=== PATIENT | female | born 1985 | race Caucasian/White ===

== ENCOUNTER 2022-04-23 12:18 | Inpatient (IN) | payer MEDICARE, MEDICAID ==
[~2022-04-23] VITALS: Ht 172.7 cm; Wt 54.4 kg
[2022-04-23] MEDS ORDERED: ZOLPIDEM TARTRATE 10 MG TABLET PO PRN (14:00)
[2022-04-23 15:28] VITALS: BP 127/82
[2022-04-23 16:12] VITALS: BP 127/82
[2022-04-23] MEDS: BACITRACIN 28 GM OINTMENT TP SCH (18:00)
[2022-04-23] MEDS ORDERED: ACETAMINOPHEN 325 MG TABLET PO PRN (18:00)
[2022-04-24] MEDS ORDERED: DOCUSATE SODIUM 100 MG CAPSULE PO PRN (06:30)
[2022-04-24] MEDS ORDERED: ONDANSETRON HCL 4 MG TABLET PO PRN (06:30)
[2022-04-24] MEDS ORDERED: NICOTINE 14 MG/24 HOUR PATCH TD PRN (06:30)
[2022-04-24] MEDS ORDERED: GuaiFENesin/D-METHORPHAN [SUGAR-FREE] 200-20MG/10 ML SYRUP UDCUP PO PRN (06:30)
[2022-04-24] MEDS ORDERED: CloNIDine HCL 0.1 MG TABLET PO PRN (06:30)
[2022-04-24] MEDS ORDERED: PETROLATUM,WHITE 28 GM JELLY TP PRN (06:30)
[2022-04-24] MEDS ORDERED: ACETAMINOPHEN 325 MG TABLET PO PRN (06:30)
[2022-04-24] MEDS ORDERED: MAGNESIUM HYDROXIDE SUSPENSION 30 ML UDCUP PO PRN (06:30)
[2022-04-24] MEDS ORDERED: MAG HYDROX/AL HYDROX/SIMETH ES 30 ML SUSPENSION UDCUP PO PRN (06:30)
[2022-04-24] MEDS ORDERED: LOPERAMIDE HCL 2 MG CAPSULE PO PRN (06:30)
[2022-04-24] MEDS ORDERED: ALBUTEROL SULFATE HFA 90 MCG/PUFF 8 GM INHALER IH PRN (06:30)
[2022-04-24] MEDS: IBUPROFEN 400 MG TABLET PO PRN (08:59)
[2022-04-24] MEDS: NICOTINE 14 MG/24 HOUR PATCH TD SCH (08:59)
[2022-04-24] MEDS: BACITRACIN 28 GM OINTMENT TP SCH ×3 (09:00→16:52)
[2022-04-24] MEDS ORDERED: LITH300C3 PO (14:23)
[2022-04-24] MEDS ORDERED: ARIP10TA38 PO (14:23)
[2022-04-24] MEDS: LORazepam 2 MG TABLET PO PRN (14:26)
[2022-04-24 20:24] VITALS: BP 110/71
[2022-04-24] MEDS: LITHIUM CARBONATE 300 MG CAPSULE PO SCH (20:42)
[2022-04-24] MEDS: ARIPiprazole 10 MG TABLET PO SCH (20:42)
[2022-04-25] MEDS: NICOTINE 14 MG/24 HOUR PATCH TD SCH (08:41)
[2022-04-25] MEDS: BACITRACIN 28 GM OINTMENT TP SCH ×2 (08:41→17:21)
[2022-04-25 08:50] VITALS: BP 118/79
[2022-04-25 08:58] VITALS: BP 118/79
[2022-04-25] MEDS: LORazepam 2 MG TABLET PO PRN (11:52)
[2022-04-25] MEDS: NITROFURANTOIN MONOHYD/M-CRYST 100 MG CAPSULE [MACROBID] PO SCH (17:21)
[2022-04-25] MEDS: ARIPiprazole 10 MG TABLET PO SCH (20:16)
[2022-04-25] MEDS: LITHIUM CARBONATE 300 MG CAPSULE PO SCH (20:17)
[2022-04-25 20:49] VITALS: BP 116/70
[2022-04-26] MEDS: BACITRACIN 28 GM OINTMENT TP SCH ×2 (08:24→16:09)
[2022-04-26] MEDS: NITROFURANTOIN MONOHYD/M-CRYST 100 MG CAPSULE [MACROBID] PO SCH ×2 (08:24→16:09)
[2022-04-26] MEDS: NICOTINE 14 MG/24 HOUR PATCH TD SCH (08:24)
[2022-04-26 08:31] VITALS: BP 116/75
[2022-04-26] MEDS: IBUPROFEN 400 MG TABLET PO PRN (10:11)
[2022-04-26] MEDS: LORazepam 2 MG TABLET PO PRN ×2 (11:27→20:54)
[2022-04-26] MEDS: ARIPiprazole 10 MG TABLET PO SCH (20:54)
[2022-04-26] MEDS: LITHIUM CARBONATE 300 MG CAPSULE PO SCH (20:54)
[2022-04-26 21:14] VITALS: BP 109/58
[2022-04-27 09:31] VITALS: BP 100/69
[2022-04-27] MEDS: NITROFURANTOIN MONOHYD/M-CRYST 100 MG CAPSULE [MACROBID] PO SCH ×2 (10:08→16:41)
[2022-04-27] MEDS: NICOTINE 14 MG/24 HOUR PATCH TD SCH (10:08)
[2022-04-27] MEDS: BACITRACIN 28 GM OINTMENT TP SCH ×2 (10:09→16:41)
[2022-04-27 18:41] VITALS: BP 112/68
[2022-04-27] MEDS: IBUPROFEN 400 MG TABLET PO PRN (18:41)
[2022-04-27] MEDS: LORazepam 2 MG TABLET PO PRN (19:47)
[2022-04-27 20:00] VITALS: BP 110/61
[2022-04-27] MEDS: LITHIUM CARBONATE 300 MG CAPSULE PO SCH (20:33)
[2022-04-27] MEDS: ARIPiprazole 10 MG TABLET PO SCH (20:33)
[2022-04-28 08:55] VITALS: BP 119/70
[2022-04-28] MEDS: NITROFURANTOIN MONOHYD/M-CRYST 100 MG CAPSULE [MACROBID] PO SCH ×2 (09:04→16:28)
[2022-04-28] MEDS: NICOTINE 14 MG/24 HOUR PATCH TD SCH (09:04)
[2022-04-28] MEDS: BACITRACIN 28 GM OINTMENT TP SCH ×2 (09:05→16:28)
[2022-04-28 11:16] LABS: GLUCOMETER DEV NAME(LOC) POC.BV
[2022-04-28] MEDS: ARIPiprazole 10 MG TABLET PO SCH (20:39)
[2022-04-28] MEDS: LITHIUM CARBONATE 300 MG CAPSULE PO SCH (20:39)
[2022-04-28 21:24] VITALS: BP 100/62
[2022-04-29 08:30] VITALS: BP 97/57
[2022-04-29] MEDS: NITROFURANTOIN MONOHYD/M-CRYST 100 MG CAPSULE [MACROBID] PO SCH ×2 (10:06→16:37)
[2022-04-29] MEDS: BACITRACIN 28 GM OINTMENT TP SCH ×2 (10:16→16:38)
[2022-04-29] MEDS: NICOTINE 14 MG/24 HOUR PATCH TD SCH (10:17)
[2022-04-29] MEDS: ARIPiprazole 10 MG TABLET PO SCH (20:34)
[2022-04-29] MEDS: LITHIUM CARBONATE 300 MG CAPSULE PO SCH (20:34)
[2022-04-29 20:49] VITALS: BP 108/61
[2022-04-30 08:44] VITALS: BP 104/68
[2022-04-30] MEDS: BACITRACIN 28 GM OINTMENT TP SCH ×2 (09:15→17:03)
[2022-04-30] MEDS: NITROFURANTOIN MONOHYD/M-CRYST 100 MG CAPSULE [MACROBID] PO SCH ×2 (09:16→17:02)
[2022-04-30] MEDS: NICOTINE 14 MG/24 HOUR PATCH TD SCH (09:17)
[2022-04-30 20:08] VITALS: BP 113/61
[2022-04-30] MEDS: LITHIUM CARBONATE 300 MG CAPSULE PO SCH (20:12)
[2022-04-30] MEDS: ARIPiprazole 10 MG TABLET PO SCH (20:12)
[2022-05-01 08:43] VITALS: BP 105/61
[2022-05-01] MEDS: NITROFURANTOIN MONOHYD/M-CRYST 100 MG CAPSULE [MACROBID] PO SCH ×2 (08:48→17:06)
[2022-05-01] MEDS: BACITRACIN 28 GM OINTMENT TP SCH ×2 (08:49→17:06)
[2022-05-01] MEDS: NICOTINE 14 MG/24 HOUR PATCH TD SCH (08:49)
[2022-05-01] MEDS: ARIPiprazole 10 MG TABLET PO SCH (20:09)
[2022-05-01] MEDS: LITHIUM CARBONATE 300 MG CAPSULE PO SCH (20:09)
[2022-05-01 20:16] VITALS: BP 107/64
[2022-05-02 08:06] VITALS: BP 110/68
[2022-05-02] MEDS: NITROFURANTOIN MONOHYD/M-CRYST 100 MG CAPSULE [MACROBID] PO SCH ×2 (09:14→16:39)
[2022-05-02] MEDS: NICOTINE 14 MG/24 HOUR PATCH TD SCH (09:15)
[2022-05-02] MEDS: BACITRACIN 28 GM OINTMENT TP SCH ×2 (09:16→16:39)
[2022-05-02] MEDS: ARIPiprazole 10 MG TABLET PO SCH (20:32)
[2022-05-02] MEDS: LITHIUM CARBONATE 300 MG CAPSULE PO SCH (20:33)
[2022-05-02 21:17] VITALS: BP 103/64
[2022-05-03 08:50] VITALS: BP 100/60
[2022-05-03] MEDS: NICOTINE 14 MG/24 HOUR PATCH TD SCH (09:28)
[2022-05-03] MEDS: BACITRACIN 28 GM OINTMENT TP SCH ×2 (09:29→16:49)
[2022-05-03] MEDS: ARIPiprazole 10 MG TABLET PO SCH (20:00)
[2022-05-03] MEDS: LITHIUM CARBONATE 300 MG CAPSULE PO SCH (20:01)
[2022-05-03 21:18] VITALS: BP 97/61
[2022-05-04] MEDS: LACTOBACILLUS ACIDOPHILUS/BULGARICUS TABLET PO SCH (08:26)
[2022-05-04] MEDS: NICOTINE 14 MG/24 HOUR PATCH TD SCH (08:26)
[2022-05-04 09:00] VITALS: BP 103/54
[2022-05-04] MEDS: BACITRACIN 28 GM OINTMENT TP SCH ×2 (09:00→16:32)
[2022-05-04] MEDS: LITHIUM CARBONATE 300 MG CAPSULE PO SCH (20:27)
[2022-05-04] MEDS: ARIPiprazole 10 MG TABLET PO SCH (20:27)
[2022-05-04 20:54] VITALS: BP 104/62
[2022-05-05] MEDS: NICOTINE 14 MG/24 HOUR PATCH TD SCH (08:35)
[2022-05-05] MEDS: LACTOBACILLUS ACIDOPHILUS/BULGARICUS TABLET PO SCH (08:35)
[2022-05-05] MEDS: BACITRACIN 28 GM OINTMENT TP SCH ×2 (08:35→16:21)
[2022-05-05 09:03] VITALS: BP 128/74
[2022-05-05 20:14] VITALS: BP 104/61
[2022-05-05] MEDS: LITHIUM CARBONATE 300 MG CAPSULE PO SCH (20:14)
[2022-05-05] MEDS: ARIPiprazole 10 MG TABLET PO SCH (20:14)
[2022-05-05 21:16] LABS: GLUCOMETER DEV NAME(LOC) POC.BV
[2022-05-06 08:30] VITALS: BP 122/70
[2022-05-06] MEDS: LACTOBACILLUS ACIDOPHILUS/BULGARICUS TABLET PO SCH (09:41)
[2022-05-06] MEDS: NICOTINE 14 MG/24 HOUR PATCH TD SCH (09:42)
[2022-05-06] MEDS: BACITRACIN 28 GM OINTMENT TP SCH ×2 (09:42→17:14)
[2022-05-06] MEDS: LITHIUM CARBONATE 300 MG CAPSULE PO SCH (20:07)
[2022-05-06] MEDS: ARIPiprazole 10 MG TABLET PO SCH (20:07)
[2022-05-06 21:05] VITALS: BP 100/60
[2022-05-07] MEDS: BACITRACIN 28 GM OINTMENT TP SCH ×2 (08:10→16:55)
[2022-05-07] MEDS: LACTOBACILLUS ACIDOPHILUS/BULGARICUS TABLET PO SCH (08:11)
[2022-05-07] MEDS: NICOTINE 14 MG/24 HOUR PATCH TD SCH (08:11)
[2022-05-07 08:22] VITALS: BP 104/56
[2022-05-07 20:08] VITALS: BP 103/65
[2022-05-07] MEDS: LITHIUM CARBONATE 300 MG CAPSULE PO SCH (20:31)
[2022-05-07] MEDS: ARIPiprazole 10 MG TABLET PO SCH (20:31)
[2022-05-08] MEDS: LACTOBACILLUS ACIDOPHILUS/BULGARICUS TABLET PO SCH (08:15)
[2022-05-08] MEDS: BACITRACIN 28 GM OINTMENT TP SCH ×2 (08:15→16:31)
[2022-05-08] MEDS: NICOTINE 14 MG/24 HOUR PATCH TD SCH (08:16)
[2022-05-08 08:56] VITALS: BP 116/68
[2022-05-08] MEDS: MULTIVITAMINS WITH MINERALS, THERAPEUTIC TABLET PO SCH (16:31)
[2022-05-08 20:21] VITALS: BP 101/61
[2022-05-08] MEDS: ARIPiprazole 10 MG TABLET PO SCH (20:32)
[2022-05-08] MEDS: LITHIUM CARBONATE 300 MG CAPSULE PO SCH (20:32)
[2022-05-09 08:10] VITALS: BP 100/60
[2022-05-09] MEDS: LACTOBACILLUS ACIDOPHILUS/BULGARICUS TABLET PO SCH (08:29)
[2022-05-09] MEDS: MULTIVITAMINS WITH MINERALS, THERAPEUTIC TABLET PO SCH (08:29)
[2022-05-09] MEDS: NICOTINE 14 MG/24 HOUR PATCH TD SCH (08:30)
[2022-05-09] MEDS: BACITRACIN 28 GM OINTMENT TP SCH ×2 (08:43→17:11)
[2022-05-09 09:34] VITALS: BP 94/56
[2022-05-09] MEDS: LITHIUM CARBONATE 300 MG CAPSULE PO SCH (20:11)
[2022-05-09] MEDS: ARIPiprazole 10 MG TABLET PO SCH (20:11)
[2022-05-10 04:27] VITALS: BP 100/60
[2022-05-10] MEDS: NICOTINE 14 MG/24 HOUR PATCH TD SCH (08:11)
[2022-05-10] MEDS: LACTOBACILLUS ACIDOPHILUS/BULGARICUS TABLET PO SCH (08:12)
[2022-05-10] MEDS: BACITRACIN 28 GM OINTMENT TP SCH ×2 (08:12→16:12)
[2022-05-10] MEDS: MULTIVITAMINS WITH MINERALS, THERAPEUTIC TABLET PO SCH (08:12)
[2022-05-10 09:55] VITALS: BP 102/78
[2022-05-10] MEDS: LITHIUM CARBONATE 300 MG CAPSULE PO SCH (20:02)
[2022-05-10] MEDS: ARIPiprazole 10 MG TABLET PO SCH (20:02)
[2022-05-11 04:36] VITALS: BP 97/60
[2022-05-11 08:28] VITALS: BP 100/59
[2022-05-11] MEDS: NICOTINE 14 MG/24 HOUR PATCH TD SCH (10:24)
[2022-05-11] MEDS: MULTIVITAMINS WITH MINERALS, THERAPEUTIC TABLET PO SCH (10:24)
[2022-05-11] MEDS: LACTOBACILLUS ACIDOPHILUS/BULGARICUS TABLET PO SCH (10:25)
[2022-05-11] MEDS: BACITRACIN 28 GM OINTMENT TP SCH ×2 (10:25→16:45)
[2022-05-11 20:00] VITALS: BP 91/55
[2022-05-11] MEDS: ARIPiprazole 10 MG TABLET PO SCH (20:50)
[2022-05-11] MEDS: LITHIUM CARBONATE 300 MG CAPSULE PO SCH (20:50)
[2022-05-12 08:15] VITALS: BP 114/74
[2022-05-12] MEDS: BACITRACIN 28 GM OINTMENT TP SCH ×2 (09:33→16:34)
[2022-05-12] MEDS: NICOTINE 14 MG/24 HOUR PATCH TD SCH (09:33)
[2022-05-12] MEDS: MULTIVITAMINS WITH MINERALS, THERAPEUTIC TABLET PO SCH (09:33)
[2022-05-12 11:31] LABS: GLUCOMETER DEV NAME(LOC) POC.BV
[2022-05-12] MEDS: LACTOBACILLUS ACIDOPHILUS/BULGARICUS TABLET PO SCH (13:16)
[2022-05-12 20:19] VITALS: BP 106/63
[2022-05-12] MEDS: LITHIUM CARBONATE 300 MG CAPSULE PO SCH (20:35)
[2022-05-12] MEDS: ARIPiprazole 10 MG TABLET PO SCH (20:35)
[2022-05-13] MEDS: LACTOBACILLUS ACIDOPHILUS/BULGARICUS TABLET PO SCH (09:49)
[2022-05-13] MEDS: MULTIVITAMINS WITH MINERALS, THERAPEUTIC TABLET PO SCH (09:49)
[2022-05-13] MEDS: BACITRACIN 28 GM OINTMENT TP SCH ×2 (09:50→16:52)
[2022-05-13] MEDS: NICOTINE 14 MG/24 HOUR PATCH TD SCH (09:50)
[2022-05-13 20:15] VITALS: BP 109/58
[2022-05-13] MEDS: ARIPiprazole 10 MG TABLET PO SCH (20:29)
[2022-05-13] MEDS: LITHIUM CARBONATE 300 MG CAPSULE PO SCH (20:29)
[2022-05-14 04:33] VITALS: BP 115/86
[2022-05-14 08:22] VITALS: BP 118/81
[2022-05-14] MEDS: LACTOBACILLUS ACIDOPHILUS/BULGARICUS TABLET PO SCH (08:48)
[2022-05-14] MEDS: MULTIVITAMINS WITH MINERALS, THERAPEUTIC TABLET PO SCH (08:48)
[2022-05-14] MEDS: NICOTINE 14 MG/24 HOUR PATCH TD SCH (08:49)
[2022-05-14] MEDS: BACITRACIN 28 GM OINTMENT TP SCH ×2 (08:54→17:13)
[2022-05-14 20:11] VITALS: BP 107/58
[2022-05-14] MEDS: ARIPiprazole 10 MG TABLET PO SCH (20:20)
[2022-05-14] MEDS: LITHIUM CARBONATE 300 MG CAPSULE PO SCH (20:20)
[2022-05-15] MEDS: LACTOBACILLUS ACIDOPHILUS/BULGARICUS TABLET PO SCH (08:28)
[2022-05-15] MEDS: NICOTINE 14 MG/24 HOUR PATCH TD SCH (08:28)
[2022-05-15] MEDS: MULTIVITAMINS WITH MINERALS, THERAPEUTIC TABLET PO SCH (08:28)
[2022-05-15] MEDS: BACITRACIN 28 GM OINTMENT TP SCH ×2 (08:28→17:10)
[2022-05-15 08:38] VITALS: BP 108/60
[2022-05-15] MEDS: LITHIUM CARBONATE 300 MG CAPSULE PO SCH (20:09)
[2022-05-15] MEDS: ARIPiprazole 10 MG TABLET PO SCH (20:09)
[2022-05-15 23:30] VITALS: BP 110/68
[2022-05-16 08:23] VITALS: BP 99/60
[2022-05-16] MEDS: BACITRACIN 28 GM OINTMENT TP SCH ×2 (09:00→17:00)
[2022-05-16] MEDS: LACTOBACILLUS ACIDOPHILUS/BULGARICUS TABLET PO SCH (09:27)
[2022-05-16] MEDS: MULTIVITAMINS WITH MINERALS, THERAPEUTIC TABLET PO SCH (09:27)
[2022-05-16] MEDS: NICOTINE 14 MG/24 HOUR PATCH TD SCH (09:27)
[2022-05-16] MEDS: ARIPiprazole 10 MG TABLET PO SCH (20:33)
[2022-05-16] MEDS: LITHIUM CARBONATE 300 MG CAPSULE PO SCH (20:33)
[2022-05-16 21:23] VITALS: BP 104/61
[2022-05-17] MEDS: MULTIVITAMINS WITH MINERALS, THERAPEUTIC TABLET PO SCH (08:08)
[2022-05-17] MEDS: BACITRACIN 28 GM OINTMENT TP SCH ×2 (08:08→16:29)
[2022-05-17] MEDS: LACTOBACILLUS ACIDOPHILUS/BULGARICUS TABLET PO SCH (08:08)
[2022-05-17] MEDS: NICOTINE 14 MG/24 HOUR PATCH TD SCH (08:09)
[2022-05-17 08:56] VITALS: BP 100/65
[2022-05-17] MEDS: ARIPiprazole 10 MG TABLET PO SCH (20:32)
[2022-05-17] MEDS: LITHIUM CARBONATE 300 MG CAPSULE PO SCH (20:33)
[2022-05-17 21:06] VITALS: BP 99/61
[2022-05-18 08:00] VITALS: BP 100/60
[2022-05-18] MEDS: MULTIVITAMINS WITH MINERALS, THERAPEUTIC TABLET PO SCH (08:05)
[2022-05-18] MEDS: NICOTINE 14 MG/24 HOUR PATCH TD SCH (08:05)
[2022-05-18] MEDS: BACITRACIN 28 GM OINTMENT TP SCH ×2 (08:06→16:34)
[2022-05-18] MEDS: LACTOBACILLUS ACIDOPHILUS/BULGARICUS TABLET PO SCH (08:06)
[2022-05-18] MEDS: ARIPiprazole 10 MG TABLET PO SCH (20:29)
[2022-05-18] MEDS: LITHIUM CARBONATE 300 MG CAPSULE PO SCH (20:29)
[2022-05-18 21:56] VITALS: BP 112/68
[2022-05-19 09:01] LABS: GLUCOMETER DEV NAME(LOC) POC.BV
[2022-05-19] MEDS: LACTOBACILLUS ACIDOPHILUS/BULGARICUS TABLET PO SCH (10:13)
[2022-05-19] MEDS: MULTIVITAMINS WITH MINERALS, THERAPEUTIC TABLET PO SCH (10:13)
[2022-05-19] MEDS: BACITRACIN 28 GM OINTMENT TP SCH ×2 (10:13→16:28)
[2022-05-19] MEDS: NICOTINE 14 MG/24 HOUR PATCH TD SCH (10:13)
[2022-05-19 10:31] VITALS: BP 100/60
[2022-05-19 20:17] VITALS: BP 102/61
[2022-05-19] MEDS: LITHIUM CARBONATE 300 MG CAPSULE PO SCH (20:36)
[2022-05-19] MEDS: ARIPiprazole 10 MG TABLET PO SCH (20:36)
[2022-05-20 08:28] VITALS: BP 100/62
[2022-05-20] MEDS: LACTOBACILLUS ACIDOPHILUS/BULGARICUS TABLET PO SCH (09:15)
[2022-05-20] MEDS: BACITRACIN 28 GM OINTMENT TP SCH ×2 (09:15→16:12)
[2022-05-20] MEDS: MULTIVITAMINS WITH MINERALS, THERAPEUTIC TABLET PO SCH (09:15)
[2022-05-20] MEDS: NICOTINE 14 MG/24 HOUR PATCH TD SCH (09:15)
[2022-05-20 20:09] VITALS: BP 101/60
[2022-05-20] MEDS: ARIPiprazole 10 MG TABLET PO SCH (20:43)
[2022-05-20] MEDS: LITHIUM CARBONATE 300 MG CAPSULE PO SCH (20:43)
[2022-05-21] MEDS: LACTOBACILLUS ACIDOPHILUS/BULGARICUS TABLET PO SCH (08:02)
[2022-05-21] MEDS: BACITRACIN 28 GM OINTMENT TP SCH (08:03)
[2022-05-21] MEDS: NICOTINE 14 MG/24 HOUR PATCH TD SCH (08:03)
[2022-05-21] MEDS: MULTIVITAMINS WITH MINERALS, THERAPEUTIC TABLET PO SCH (08:03)
[2022-05-21 08:45] VITALS: BP 124/68
[2022-05-21] MEDS ORDERED: LITH300C3 PO (09:25)
[2022-05-21] MEDS ORDERED: ARIP10TA38 PO (09:25)
== END 2022-05-21 12:20 | disposition home or self-care (01) | DRG 885 ==
LOC: B2X 14:55
PROVIDERS: ADMIT Psychiatry & Neurology Psychiatry; ATTEND Psychiatry & Neurology Psychiatry
DX: F31.2 Bipolar disorder, current episode manic severe with psychotic features (principal); F15.20 Other stimulant dependence, uncomplicated; E44.0 Moderate protein-calorie malnutrition; Z68.1 Body mass index [BMI] 19.9 or less, adult; F10.10 Alcohol abuse, uncomplicated; F41.9 Anxiety disorder, unspecified; G47.00 Insomnia, unspecified; Z20.822 Contact with and (suspected) exposure to COVID-19; S91.301A Unspecified open wound, right foot, initial encounter; X58.XXXA Exposure to other specified factors, initial encounter; Y93.89 Activity, other specified; Y92.89 Other specified places as the place of occurrence of the external cause; Z88.0 Allergy status to penicillin; Z88.8 Allergy status to other drugs, medicaments and biological substances; Z88.1 Allergy status to other antibiotic agents; Z59.00 Homelessness unspecified; Z79.899 Other long term (current) drug therapy; Z91.14 Patient's other noncompliance with medication regimen; Z91.51 Personal history of suicidal behavior; Y99.8 Other external cause status
CPT/HCPCS: 80178; 87081; Q0162